=== PATIENT | female | born 1970 | race Caucasian/White ===

== ENCOUNTER 2017-03-21 19:57 | Emergency (ER) | payer OTHER ==
[2017-03-21 20:30] VITALS: BMI 24.4
[2017-03-21] MEDS ORDERED: ACETAMINOPHEN 325 MG TABLET (FP) PO ONE (22:26)
--- NOTE | 2017-03-21 22:26 | PDOC ---
History of Present Illness - General History Source: Patient Exam Limitations: No Limitations - History of Present Illness Initial Comments: 03/22/17 00:08 The patient is a 46 year old female, with a significant past medical history of polysubstance abuse, who presents to the emergency department after being sent from [facility] for health care evaluation prior to admission for detox. The patient notes that she is at [facility] for [facility] detox. The patient notes that she fell last week and hit her forehead but denies losing consciousness. She was told it was possible she needed surgery but does not remember what the surgery was supposed to be fore. Prior to this the patient hurt her left big toe , which she thinks may be broken but is not sure. The patient denies chest pain, shortness of breath, headache and dizziness. Allergies: None Past surgical history: None reported Social history: Alcohol use. Cigarette use (10 daily). Polysubtance abuse. <Terrell Ryan - Last Filed: 03/22/17 00:05> - General History Source: Patient Exam Limitations: No Limitations <Bryan Frank - Last Filed: 03/22/17 01:22> - General Chief Complaint: Pain Stated Complaint: PAIN Time Seen by Provider: 03/21/17 21:21 Past History <Terrell Ryan - Last Filed: 03/22/17 00:05> - Past Medical History Other medical history: Pt denies - Psycho/Social/Smoking Cessation Hx Suicidal Ideation: No Smoking History: Current every day smoker Number of Cigarettes Smoked Daily: 10 Information on smoking cessation initiated: No Hx Alcohol Use: Yes Substance Use Type: Alcohol <Bryan Frank - Last Filed: 03/22/17 01:22> - Past Medical History Allergies/Adverse Reactions: Allergies Allergy/AdvReac Type Severity Reaction Status Date / Time No Known Allergies Allergy Verified 03/21/17 20:27 Home Medications: Ambulatory Orders Aripiprazole [Abilify -] 15 mg PO DAILY 03/21/17 Review of Systems - Review of Systems Able to Perform ROS?: Yes Comments:: 03/22/17 00:07 CONSTITUTIONAL: No fever, no chills, no fatigue HEAD: (+) Forehead hematoma EYES: No visual changes ENT: No ear pain, no sore throat CARDIOVASCULAR: No chest pain, no palpitations RESPIRATORY: No cough, no SOB GI: No abdominal pain, no nausea, no vomiting, no constipation, no diarrhea GENITOURINARY: No dysuria, no frequency, no hematuria EXTREMITIES: (+) Left big toe pain. MUSKULOSKELETAL: No backpain, no joint pain, no myalgias SKIN: No rash NEURO: No headache <Terrell Ryan - Last Filed: 03/22/17 00:05> *Physical Exam - Vital Signs Last Vital Signs Temp Pulse Resp BP Pulse Ox 97.7 F 73 20 130/72 96 03/21/17 20:27 03/21/17 20:27 03/21/17 20:27 03/21/17 20:27 03/21/17 20:27 <Terrell Ryan - Last Filed: 03/22/17 00:05> - Vital Signs Last Vital Signs Temp Pulse Resp BP Pulse Ox 97.7 F 73 20 130/72 96 03/21/17 20:27 03/21/17 20:27 03/21/17 20:27 03/21/17 20:27 03/21/17 20:27 - Physical Exam Comments: 03/22/17 01:17 EXAMINATION CONSTITUTIONAL: Awake and alert; disheveled; well-nourished; in no apparent distress HEAD: Normocephalic; + 2 cm soft tissue swelling to the left of the glabella, mildly tender to palpation without bony crepitus or step-offs. EYES: PERRL; EOM intact ENMT: External appears normal; normal oropharynx NECK: Supple; non-tender; no cervical lymphadenopathy CARD: Normal S1, S2; no murmurs, rubs, or gallops RESP: Normal chest excursion with respiration; breath sounds clear and equal bilaterally; no wheezes, rhonchi, or rales ABD: Soft, non-distended; non-tender; no palpable organomegaly, no palpable hernias EXT: Normal ROM in all four extremities; non-tender to palpation; distal pulses intact SKIN: Warm, dry, + several irregular abrasions to the plantar aspect of the right foot; NEURO: Cranial 2 through 12 grossly intact; motor is 5 of 54; gait-stable. <Bryan Frank - Last Filed: 03/22/17 01:22> ED Treatment Course - RADIOLOGY Radiology Studies Ordered: Category Date Time Status FOOT-RIGHT [RAD] Stat Radiology 03/21/17 22:21 Ordered <Bryan Frank - Last Filed: 03/22/17 01:22> Medical Decision Making - Medical Decision Making 03/22/17 01:19 Patient is a 46-year-old female with history of bipolar disorder, polysubstance abuse who presents to the ER for medical clearance for crack detox. In the ER, patient is noted to have soft tissue swelling to the area forehead caused by mechanical fall over a week ago. 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 Foot x-ray reveals no evidence of fracture dislocation. Will discharge for evaluation of inpatient detox. <Bryan Frank - Last Filed: 03/22/17 01:22> *DC/Admit/Observation/Transfer - Attestations Scribe Attestion: 03/22/17 00:05 Documentation prepared by Terrell Ryan, acting as rn medical inpatient services for Bryan Frank MD <Terrell Ryan - Last Filed: 03/22/17 00:05> - Attestations Physician Attestion: 03/22/17 01:16 The documentation was prepared by the scribe under my direct supervision. I have reviewed the documentation which correctly represents the findings, medical decision-making and critical action taken by me. <Bryan Frank - Last Filed: 03/22/17 01:22> Diagnosis at time of Disposition: Head injury, closed Qualifiers: Encounter type: sequela Qualified Code(s): S09.90XS - Unspecified injury of head, sequela Contusion Qualifiers: Encounter type: initial encounter Contusion area: foot Laterality: right Qualified Code(s): S90.31XA - Contusion of right foot, initial encounter - Discharge Dispostion Disposition: HOME Condition at time of disposition: Stable - Referrals Referrals: [facility] [Provider Group] - Patient Instructions Printed Discharge Instructions: DI for Closed Head Injury, DI for Contusion
[2017-03-22] MEDS ORDERED: ACETAMINOPHEN 325 MG TABLET (FP) ONE (00:09)
[2017-03-22] MEDS ORDERED: IBUPROFEN 400 MG TABLET (FP) PO ONE ×2 (01:29→01:32)
[2017-03-22 01:35] VITALS: BP 125/69; PULSE 68; TEMP 98.1
== END 2017-03-22 01:36 | disposition home or self-care (01) ==
LOC: JER 19:57
DX: S00.83XD Contusion of other part of head, subsequent encounter (principal); W19.XXXD Unspecified fall, subsequent encounter; F10.10 Alcohol abuse, uncomplicated; F14.10 Cocaine abuse, uncomplicated; F31.9 Bipolar disorder, unspecified; F17.210 Nicotine dependence, cigarettes, uncomplicated
CPT/HCPCS: 73630-TC-RT; 99281-25